=== PATIENT | male | born 1965 | race Caucasian/White ===

== ENCOUNTER 2017-01-23 14:21 | Outpatient (CLI) | payer OTHER ==
[2017-01-23 14:34] LABS: EOSINOPHILS % 1.5 % (0.0-6.8); MEAN CORPUSCULAR VOLUME 90.7 fl (80.0-100.0); MONOCYTES % 2.2 % (0.0-11.0); NEUTROPHILS # 10.1 # k/uL (1.4-7.7)
[2017-01-23 14:45] LABS: BASOPHILS % 0.3 (0.0-1.5)
== END 2017-01-23 14:30 ==
LOC: LAB 14:21
PROVIDERS: ATTEND Physician Assistant
DX: M25.50 Pain in unspecified joint (principal); W57.XXXA Bitten or stung by nonvenomous insect and other nonvenomous arthropods, initial encounter; Y93.9 Activity, unspecified; Y99.9 Unspecified external cause status
CPT/HCPCS: 36415; 85025; 86618; 86666; 86757

== ENCOUNTER 2017-08-25 12:12 | Outpatient (CLI) | payer OTHER ==
[2017-08-25 12:33] LABS: EOSINOPHILS % 3.3 % (0.0-6.8); MEAN CORPUSCULAR HEMOGLOBIN 29.9 pg (28.0-34.0); MEAN CORPUSCULAR VOLUME 88.7 fl (80.0-100.0); MONOCYTES % 4.7 % (0.0-11.0); NEUTROPHILS # 4.6 # k/uL (1.4-7.7)
[2017-08-25 13:08] LABS: eGFR (African) > 60; eGFR (Non-African) > 60
--- NOTE | 2017-08-25 14:56 | Diagnostic Imaging Report ---
ANAM MOSQUEDA [facility] [address] [facility] [address] [place] [address]. [id number] Report Submission Date: Aug 25, 2017 2:54:11 PM PILLOW FILLER Patient Study Name: ANGEL HAMILTON Date: Aug 25, 2017 2:10:15 PM PILLOW FILLER Modality Type: CT\SR Gender: M Description: CT ABD & PELVIS W/ CON : 69 Institution: [facility] Physician: ANAM MOSQUEDA Examination: CT Abdomen/pelvis History: Lower abdominal discomfort Comparison exams: None available Technique: CT Abdomen/pelvis with IV protocol. Findings: Liver demonstrates diffuse low attenuation. No central lesion. Spleen , adrenals, pancreas, and kidneys are without gross irregularity. No abnormal enhancement. Small gallstone. No adjacent inflammation. No suspicious renal calcifications. Ureters are nondilated in their course through the abdomen and pelvis. No central calcification. Artifact from right hip prosthesis limits evaluation of the bladder region. Abdominal aorta without aneurysmal dilation. Cardiac silhouette not enlarged. No pericardial effusion. Contrast within the bowel. Few loops of upper abdominal small bowel appear to be prominent with air-fluid levels. Stool within the large bowel limiting sensitivity. Thickening of the large bowel mucosa. Thickening of the distal small bowel near the ileocecal valve. No mesenteric inflammatory changes or free fluid. Osseous structures demonstrates degenerative spurring. Left hip prosthesis. Lung bases without infiltrate. No effusion. Impression: Diffuse large bowel and distal small bowel mucosal thickening suggesting component of colitis/inflammatory bowel process. Correlate clinically. Correlate with medical history regarding possible other underlying large/small bowel pathology. Few loops of prominent small bowel within the upper central abdomen with air- fluid levels - localized enteritis Fatty liver. Small gallstone. No adjacent summation. No suspicious renal calcifications or abnormal ureteric dilation. No lung base consolidation or effusion. No abdominal mass or inflammatory process. Electronically signed on Aug 25, 2017 2:54:11 PM PILLOW FILLER by: Marino SARAVIA
== END 2017-08-25 12:13 ==
LOC: LAB 12:12
PROVIDERS: ATTEND Family Medicine
DX: E11.65 Type 2 diabetes mellitus with hyperglycemia (principal); R10.32 Left lower quadrant pain
CPT/HCPCS: 36415; 74177; 80053; 82043; 83036; 85025; Q9966; Q9967

== ENCOUNTER 2019-06-22 12:07 | Outpatient (CLI) | payer OTHER ==
[2019-06-22 13:13] LABS: A1C 8.3 % (<5.7)
[2019-06-22 13:38] LABS: eGFR (Non-African) > 60
[2019-06-22 13:39] LABS: HDL 43 mg/dL (>40)
== END 2019-06-22 12:15 ==
LOC: LAB 12:07
PROVIDERS: ATTEND Family Medicine
DX: E11.9 Type 2 diabetes mellitus without complications (principal); R07.89 Other chest pain; R53.83 Other fatigue
CPT/HCPCS: 36415; 80053; 80061; 83036; 84403; 84439; 84443; 84481; 84484